=== PATIENT | female | born 1985 | race Caucasian/White ===

== ENCOUNTER 2017-08-18 15:32 | Emergency (ER) | payer MEDICAID ==
[2017-08-18] MEDS ORDERED: CEFTRIAXONE SODIUM 1 GM in 0.9 % SODIUM CHLORIDE 100ML 100 ML IVPB ONE (15:50)
--- NOTE | 2017-08-18 16:16 | Emergency Department Record ---
History of Present Illness - General Chief Complaint: Animal Bite Stated Complaint: CAT BITE Time Seen by Provider: 08/18/17 15:43 Source: Patient Mode of Arrival: Ambulatory Limitations: No limitations - History of Present Illness Initial Comments: The patient is here due to a cat bite to the R foot 16 hours ago. It was a provoked attack between 2 fighting cats. It was the patient's cat who bit her and the rabies status is not UTD. The patient's last tetanus was 4 years ago. The foot has become very painful and red over the last 6 hours. MD Complaint: Animal bite Onset/Timin -: Hour(s) Animal: Cat Description: Household pet Mechanism: Bite Pain Description: Sharp Severity scale (1-10): 6 Context: Animals fighting Associated Symptoms: Bleeding, Erythema Treatments Prior to Arrival: Other - Related Data Patient Tetanus UTD (within 5 yrs): Yes Previous Rx's Medication Instructions Recorded Amoxicillin/Potassium Clav 1 tab PO BID #20 tablet 08/18/17 [Augmentin 875Mg/125Mg] Hydrocodone/Acetaminophen [[place] 1 - 2 each PO .EVERY 4-6 HRS PRN 08/18/17 5-325 Tablet] #15 tablet Allergies Allergy/AdvReac Type Severity Reaction Status Date / Time No Known Drug Allergies Allergy Verified 08/18/17 15:42 Travel Screening - Travel/Exposure Within Last 30 Days Have you traveled within the last 30 days?: No Review of Systems Constitutional: Denies: Chills, Fever Past Medical History - SOCIAL HISTORY Smoking Status: Current every day smoker Alcohol Use: None Drug Use: None - RESPIRATORY Hx Respiratory Disorders: No - CARDIOVASCULAR Hx Cardio Disorders: No - NEURO Hx Neuro Disorders: No - GI Hx GI Disorders: No - Hx Genitourinary Disorders: No - ENDOCRINE Hx Endocrine Disorders: No - MUSCULOSKELETAL Hx Musculoskeletal Disorders: No - PSYCH Hx Psych Problems: No - HEMATOLOGY/ONCOLOGY Hx Hematology/Oncology Disorders: No Family Medical History Any Significant Family History?: Yes Hx HTN: Grandparents Physical Exam - General General Appearance: Alert, Cooperative, No acute distress - Head Head exam: Atraumatic, Normocephalic - Eye Eye exam: Normal appearance, PERRL - Extremities Extremities exam: Normal capillary refill, Tenderness (There is significant tenderness to palpation over the PW sites with very mild swelling and warmth. ) , Other (There is no crepitance or bullae at the cellulitis site. There also is no lymphangitis or any red streaking traveling up the ankle or leg. The infection is localized to the dorsal foot.). negative: Normal inspection ( There are 2 PW's to the R foot dorsally and laterally. The foot is NVI and quite tender at the PW sites. There is significant erythema surrounding the bite wounds. ), Pedal edema Image of Feet: 1 - Area of erythema with 2 PW sites. 2 - PW # 1. 3 - PW # 2. Course Vital Signs 08/18/17 15:37 Temperature 98.0 F Pulse Rate 101 H Respiratory 20 Rate Blood Pressure 143/90 Pulse Ox 97 - Reevaluation(s) Reevaluation #1: Procedure note: Both PW's were anesth. with L[place] 1% and opened up with a # 11 blade. A small amount of purulence was expressed. The wounds were then cleansed with betadine and sterile saline. 08/18/17 16:15 Reevaluation #2: I did explain to the patient she is to keep the foot dry and elevated and to return to the ER at 8am for repeat Abx's. I did explain to her that she may need to be admitted if the foot infection is worse tomorrow. 08/18/17 17:06 Medical Decision Making - Data Complexity MDM Data: X-Ray Ordered and/or Reviewed - Radiology Data Radiology results: Report reviewed (R foot: Neg for any acute injury.) Disposition Disposition: Discharge Clinical Impression: Cellulitis of foot without toes, left Disposition: Home, Self-Care Condition: (2) Stable Instructions: Animal Bite (ED) Additional Instructions: Please keep the L foot elevated and limit your walking. Take the Augmentin as directed and use Kulm for pain. Return to the ER at 8am for recheck and repeat Abx's. Return sooner for any worsening pain, swelling, or fever. Prescriptions: Amoxicillin/Potassium Clav [Augmentin 875Mg/125Mg] 1 tab PO BID #20 tablet Hydrocodone/Acetaminophen [[place] 5-325 Tablet] 1 - 2 each PO .EVERY 4-6 HRS PRN #15 tablet PRN Reason: Pain Forms: Patient Portal Access Time of Disposition: 17:08 Quality - Quality Measures Quality Measures: N/A - Blood Pressure Screening View Details: Yes Does Patient Have Any of the Following: No Blood Pressure Classification: Hypertensive Reading Systolic Measurement: 143 Diastolic Measurement: 90 Screening for High Blood Pressure: < First Hypertensive BP, F/U Documented > [ G8950] First Hypertensive Follow-up Interventions: Referral to alternative/primary care provider.
[2017-08-18] MEDS ORDERED: KETOROLAC 30 MG/ML VIAL IVP ONE (16:45)
[2017-08-18] MEDS ORDERED: HYDROCODONE/APAP 5/325MG TABLET PO ONE (16:53)
--- NOTE | 2017-08-20 18:11 | RADIOLOGY REPORT ---
EXAM: FOOT, RIGHT 3 VIEWS HISTORY: FOOT PAIN. TECHNIQUE: Three views of the right foot. COMPARISON: None. ENCOUNTER: Initial. FINDINGS: Negative for fracture or dislocation. Mild diffuse soft tissue swelling. No soft tissue gas. Joint spaces are preserved. IMPRESSION: MILD DIFFUSE SOFT TISSUE SWELLING. NO ACUTE OSSEOUS ABNORMALITY. JOB NUMBER: [id number] MTDD
== END 2017-08-18 17:36 | disposition home or self-care (01) ==
LOC: ER 15:32
DX: S91.352A Open bite, left foot, initial encounter (principal); L03.116 Cellulitis of left lower limb; W55.01XA Bitten by cat, initial encounter; Y92.009 Unspecified place in unspecified non-institutional (private) residence as the place of occurrence of the external cause; F17.210 Nicotine dependence, cigarettes, uncomplicated
CPT/HCPCS: 10060 ×2; 99284 ×2; 96374; 96375; 73630; J1885

== ENCOUNTER 2017-08-19 08:07 | Inpatient (IN) | payer MEDICAID ==
[2017-08-19] MEDS ORDERED: AMPICILLIN SODIUM/SULBACTAM NA 3 G in 0.9 % SODIUM CHLORIDE 100ML 100 ML IVPB ONE (08:13)
--- NOTE | 2017-08-19 08:19 | Emergency Department Record ---
History of Present Illness - General Chief Complaint: Wound, check Stated Complaint: RECHECK Time Seen by Provider: 08/19/17 08:08 Source: Patient Mode of arrival: Ambulatory Limitations: No limitations - History of Present Illness Initial Comments: 32 yo female presents for a recheck of a cat bite that occurred about 30 hours ago. She was seen 24 hours ago in the ED. She was given Rocephin IVPB and sent home on oral medications. She states she has some increase in redness and swelling today. No fevers. She has been off her foot using crutches and has tried to keep the foot elevated. PCP is Josesito Dos Santos in [place]. Complaint: Needs IV antibiotics, Wound re-check -: Days(s) (1.25) Initial Visit For: Animal bite Returns Today for: Cellulitis follow-up, Needs IV antibiotics Symptoms Since Prior Visit: Worsening redness, Worsening swelling Associated Symptoms: None - Related Data Previous Rx's Medication Instructions Recorded Amoxicillin/Potassium Clav 1 tab PO BID #20 tablet 08/18/17 [Augmentin 875Mg/125Mg] Hydrocodone/Acetaminophen [[place] 1 - 2 each PO .EVERY 4-6 HRS PRN 08/18/17 5-325 Tablet] #15 tablet Allergies Allergy/AdvReac Type Severity Reaction Status Date / Time No Known Drug Allergies Allergy Verified 08/19/17 08:25 Review of Systems Constitutional: Denies: Chills, Fever, Malaise, Weakness Eyes: Denies: Eye discharge, Eye pain ENT: Denies: Congestion, Throat pain Respiratory: Denies: Cough Cardiovascular: Denies: Chest pain, Syncope Endocrine: Denies: Fatigue Gastrointestinal: Denies: Abdominal pain, Diarrhea, Nausea, Vomiting Genitourinary: Denies: Dysuria, Urgency Musculoskeletal: Reports: Arthralgia Skin: Reports: Change in color. Denies: Bruising, Change in hair/nails Neurological: Denies: Headache, Numbness, Weakness Psychiatric: Denies: Anxiety Hematological/Lymphatic: Denies: Blood Clots, Easy bleeding, Easy bruising, Swollen glands Past Medical History - SOCIAL HISTORY Smoking Status: Current every day smoker Drug Use: None - RESPIRATORY Hx Respiratory Disorders: No - CARDIOVASCULAR Hx Cardio Disorders: No - NEURO Hx Neuro Disorders: No - GI Hx GI Disorders: No - Hx Genitourinary Disorders: No - ENDOCRINE Hx Endocrine Disorders: No - MUSCULOSKELETAL Hx Musculoskeletal Disorders: No - PSYCH Hx Psych Problems: No - HEMATOLOGY/ONCOLOGY Hx Hematology/Oncology Disorders: No Family Medical History Hx HTN: Grandparents Physical Exam - General General Appearance: Alert, Oriented x3, Cooperative, No acute distress Limitations: No limitations - Head Head exam: Atraumatic, Normal inspection - Eye Eye exam: Normal appearance, Conjunctival injection - ENT ENT exam: Normal exam Ear exam: Normal external inspection Nasal Exam: Normal inspection Mouth exam: Normal external inspection - Neck Neck exam: Normal inspection - Respiratory Respiratory exam: Normal lung sounds bilaterally. negative: Respiratory distress - Cardiovascular Cardiovascular Exam: Regular rate, Normal rhythm, Normal heart sounds Peripheral Pulses: 2+: Dorsalis Pedis (R) - Rectal Rectal exam: Deferred - exam: Deferred - Extremities Extremities exam: Normal capillary refill, Tenderness. negative: Normal inspection Image of Feet: 1 - eruthema and mild swelling, tenderness at the site of puncture, no pus or drainage, mild erythema up the ankle - Neurological Neurological exam: Alert, Oriented X3 - Psychiatric Psychiatric exam: Normal affect, Normal mood. negative: Agitated, Anxious - Skin Skin exam: Erythema Course - Reevaluation(s) Reevaluation #1: Per the patient and the RN the area of erythema has increased and there is new streaking I recommend admission for IV antibiotics XR was reviewed Labs ordered the and the area of cellulitis marked 08/19/17 08:29 08/19/17 08:35 WBC is 12.8 08/19/17 08:49 The BMP is normal CRP is 4.8 08/19/17 08:52 I EMI Estes of the admission service. 08/19/17 08:54 The plan is IV Unasyn every 6 hours. Medical Decision Making - Lab Data Result diagrams: 08/19/17 08:22 08/19/17 08:22 Disposition Disposition: Admit Clinical Impression: Abscess or cellulitis of foot Disposition: Still a Patient at [facility] Decision to Admit: Admit from ER Decision to Admit Date: 08/19/17 Decision to Admit Time: 08:19 Condition: (1) Good Forms: Patient Portal Access Time of Disposition: 08:19 Quality - Quality Measures Quality Measures: N/A - Blood Pressure Screening Does Patient Have Any of the Following: No Blood Pressure Classification: Hypertensive Reading Systolic Measurement: 142 Diastolic Measurement: 61 Screening for High Blood Pressure: < Pre-Hypertensive BP, F/U Documented > [ G8950] Pre-Hypertensive Follow-up Interventions: Referral to alternative/primary care provider.
[2017-08-19] MEDS ORDERED: KETOROLAC 30 MG/ML VIAL IVP ONE (08:20)
[2017-08-19 08:29] LABS: BASO % 0.2 % (0-6); EOS % 2.2 % (0-6); GRAN % 65.9 % (47-80); HEMATOCRIT 40.1 % (35.0-47.0); HEMOGLOBIN 12.7 gm/dl (11.6-16.0); LYMPH % 21.2 % (16-45); MEAN CELL VOLUME 91.1 fl (81-97); MEAN CORPUSCULAR HEMOGLOBIN 28.9 pg (27-33); MEAN CORPUSCULAR HGB CONC 31.7 g/dl (32-36); MEAN PLATELET VOLUME 10.3 fl (7.4-10.4); MONO % 10.5 % (0-9); PLATELET COUNT 308 K/uL (130-400); WHITE BLOOD COUNT W/O DIFF 12.8 K/uL (4.2-12.2)
[2017-08-19 08:40] LABS: BLOOD UREA NITROGEN 13 mg/dL (6-20); CREATININE 0.6 mg/dL (0.5-0.9); EST GLOMERULAR FILTRATION RATE > 60 mL/min
[2017-08-19 08:43] LABS: GLUCOSE,RANDOM 98 mg/dL (74-109)
[2017-08-19 08:46] LABS: C-REACTIVE PROTEIN 4.81 mg/dL (<0.5)
[2017-08-19] MEDS ORDERED: HYDROCODONE/APAP 7.5/325MG TABLET PO PRN (10:12)
[2017-08-19] MEDS: NICOTINE14 MG/24 HOUR PATCH TD SCH ×2 (11:32→22:28)
--- NOTE | 2017-08-19 11:41 | History & Physical ---
History of Present Illness - Date of Service Date of Service for History & Physical: 08/20/17 - History of Present Illness Admitting Diagnosis: Cellulitis from cat bite History of Present Illness: 32yo female with CC of right foot pain. She has no significant medical history. Patient initially presented to our ED on following a bite from her cat on the top of her right foot Tuesday night. The foot had become red, swollen and very tender. Patient had two puncture wounds lanced, and cleaned. WAs given one dose of IV rocephin and sent home with augmentin. She returned to ED on tuesday with worsening redness that was then beginning to streak up her right leg. While in the ED on Tuesday, patients foot and leg were noticeably swollen. No active drainage from puncture sites. She ahd mildly elevated WBC count at 12.8 and CRP was elevated at 4..8 she was afebrile. XR from was reviewed and was negative for acute injury. Cultures obtained were still pending. She was started on Unasyn and admitted for continued IV abx therapy. 08/20/17- Patient states her foot is feeling much better today. The redness has receded significantly from yesterday and the swelling has gone down. Patient states she is better able to move her right toes compared to yesterday and the pain has decreased. She is still having pain with ambulation and has been using crutches comfortably. She denies any fever, chills, drainage from the foot. Travel Screening - Travel/Exposure Within Last 30 Days Have you traveled within the last 30 days?: No - Travel/Exposure Within Last Year Have you traveled outside the [place] in the last year?: No - Additonal Travel Details Have you been exposed to anyone with a communicable illness?: No Review of Systems Constitutional: Denies: Chills, Fever, Malaise, Weakness Eyes: Denies: Eye discharge, Eye pain ENT: Denies: Congestion, Throat pain Respiratory: Denies: Cough Cardiovascular: Denies: Chest pain, Syncope Endocrine: Denies: Fatigue Gastrointestinal: Denies: Abdominal pain, Diarrhea, Nausea, Vomiting Genitourinary: Denies: Dysuria, Urgency Musculoskeletal: Reports: Other (foot pain) Skin: Reports: Change in color. Denies: Bruising, Change in hair/nails Neurological: Denies: Headache, Numbness, Weakness Psychiatric: Denies: Anxiety Hematological/Lymphatic: Denies: Blood Clots, Easy bleeding, Easy bruising, Swollen glands Past Medical History - SOCIAL HISTORY Smoking Status: Current every day smoker Alcohol Use: None Drug Use: Occasional Drug Use Detail:: Marijuana - RESPIRATORY Hx Respiratory Disorders: No - CARDIOVASCULAR Hx Cardio Disorders: No - NEURO Hx Neuro Disorders: No - GI Hx GI Disorders: No - Hx Genitourinary Disorders: No - ENDOCRINE Hx Endocrine Disorders: No - MUSCULOSKELETAL Hx Musculoskeletal Disorders: No - PSYCH Hx Psych Problems: No - HEMATOLOGY/ONCOLOGY Hx Hematology/Oncology Disorders: No Family Medical History Any Significant Family History?: Yes Hx HTN: Grandparents H&P Meds/Allergies - Allergies Allergies: Allergies Allergy/AdvReac Type Severity Reaction Status Date / Time No Known Drug Allergies Allergy Verified 08/19/17 08:25 - Home Medications Previous Rx's Medication Instructions Recorded Amoxicillin/Potassium Clav 1 tab PO BID #20 tablet 08/18/17 [Augmentin 875Mg/125Mg] Hydrocodone/Acetaminophen [[place] 1 - 2 each PO .EVERY 4-6 HRS PRN 08/18/17 5mg/325mg] #15 tablet - Active Medications Active Medications: Current Medications Hydrocodone Bitart/Acetaminophen ([place] 7.5mg/325mg) 1 each PO Q6H PRN PRN Reason: Pain - General Enoxaparin Sodium (Lovenox) 40 mg SC DAILY [facility] Ampicillin Sodium/Sulbactam (Sodium 1.5 g/ Sodium Chloride) 100 mls @ 200 mls/ hr IVPB Q6H [facility] Stop: 08/24/17 12:01 Ketorolac Tromethamine (Toradol) 15 mg IVP Q8H PRN PRN Reason: Pain - General Nicotine (Nicotine 14mg) 1 patch TD DAILY [facility] Last Admin: 08/19/17 11:32 Dose: 1 patch Physical Exam - Vital Signs Vital Signs: Vital Signs - Last 24 Hrs Temp Pulse Resp BP Pulse Ox 08/19/17 10:12 97.6 F 84 16 113/73 97 - General General Appearance: Alert, Oriented x3, Cooperative, No acute distress Limitations: No limitations - Head Head exam: Atraumatic, Normal inspection - Eye Eye exam: Normal appearance, Conjunctival injection - ENT ENT exam: Normal exam Ear exam: Normal external inspection Nasal Exam: Normal inspection Mouth exam: Normal external inspection - Neck Neck exam: Normal inspection - Respiratory Respiratory exam: Normal lung sounds bilaterally. negative: Respiratory distress - Cardiovascular Cardiovascular Exam: Regular rate, Normal rhythm, Normal heart sounds Peripheral Pulses: 2+: Dorsalis Pedis (R) - Rectal Rectal exam: Deferred - exam: Deferred - Extremities Extremities exam: Normal capillary refill, Tenderness (over dorsum of foot). negative: Normal inspection - Neurological Neurological exam: Alert, Oriented X3 - Psychiatric Psychiatric exam: Normal affect, Normal mood. negative: Agitated, Anxious - Skin Skin exam: Erythema (dorsum of foot, ) Results - Labs Result Diagrams: 08/20/17 06:05 08/20/17 06:05 VTE H&P Assessment - Risk for VTE Risk for VTE: No Risk Level: Low Risk Assessment Date: 08/20/17 Risk Assessment Time: 16:10 VTE Orders Placed or Will Be Placed: No VTE Reason for No Prophylaxis: Not Indicated Plan - Inpatient Certification Inpatient Certification: Admit to inpatient care: Based on my medical assessment, after consideration of patient's risk factors (age, co-morbidities and patient presenting symptoms and acuity), I expect that this patient will remain in the hospital greater than or equal to two midnights and that the services needed warrant inpatient care because: Patient Risk Factors: [] Estimated length of stay: [] The patient may reasonably be expected to be discharged or transferred to a hospital within 96 hours after admission to [facility]. Services needed: [] Post hospital care (if known): [] I certify that my determination is in accordance with my understanding of Medicare requirements for reasonable and necessary inpatient services. - Detailed Diagnosis and Plan (1) Cellulitis of right foot Status: Acute Base Code: L03.115 - CELLULITIS OF RIGHT LOWER LIMB Comment: - Improving. WBC count down to 7.6 and CRP down to 3.77. Erythema is significantly reduced as is her swelling following 6 doses of unasyn. She has 2 + pulses with <2 sec cap refill. No signs of compartment syndrome. She feels her pain is very well controlled with toradol. No drainage from two wounds. -will plan to discharge home today with continued use of crutches and increase activity as tolerating. New line drawn marking erythema border and dated. -Transition to augmentin 875/125mg po bid for 10 more days. She will take her next dose this evening. has full bottle from previous script -transition to ibuprofen 800mg po up to three times daily as needed for pain.. Discussed alternating with tylenol, and she does have a script for [place] from previous ED visit which she may use for severe break through pain. -she will call her pcp, Dr. Dos Santos tuesday morning to schedule follow up. -spent 10 minutes discussing reasons to return to ED including increasing redness outside new borders drawn today, increasing swelling, drainage from puncture wounds, decreased sensation or movement in toes. She voiced her understanding. Encouraged her to avoid getting the foot wet for at least another 48H and to try and keep right foot elevated when resting. (2) Full code status Status: Acute Base Code: Z78.9 - OTHER SPECIFIED HEALTH STATUS Comment: 08/20- patient is full code (3) DVT prophylaxis Status: Acute Base Code: [id number] - Comment: 08/20/17- Patient is low risk for VTE. She is ambulating well with crutches -will encourage ambulation as tolerating
[2017-08-19] MEDS: ENOXAPARIN 40 MG/0.4 ML SYR SC SCH (11:53)
[2017-08-19] MEDS: AMPICILLIN SODIUM/SULBACTAM NA 1.5 G in 0.9 % SODIUM CHLORIDE 100ML 100 ML IVPB SCH ×3 (11:53→23:54)
[2017-08-19] MEDS: KETOROLAC 30 MG/ML VIAL IVP PRN ×2 (13:46→23:55)
[2017-08-20] MEDS: AMPICILLIN SODIUM/SULBACTAM NA 1.5 G in 0.9 % SODIUM CHLORIDE 100ML 100 ML IVPB SCH ×2 (06:29→13:14)
[2017-08-20 06:30] LABS: BASO % 0.3 % (0-6); EOS % 2.8 % (0-6); GRAN % 54.6 % (47-80); HEMATOCRIT 38.2 % (35.0-47.0); LYMPH % 29.2 % (16-45); MEAN CELL VOLUME 92.3 fl (81-97); MEAN CORPUSCULAR HGB CONC 31.4 g/dl (32-36); MEAN PLATELET VOLUME 10.5 fl (7.4-10.4); MONO % 13.1 % (0-9); PLATELET COUNT 278 K/uL (130-400); RED BLOOD COUNT 4.14 M/uL (3.80-5.40); RED CELL DISTRIBUTION WIDTH 12.8 % (11.5-14.5); WHITE BLOOD COUNT W/O DIFF 7.6 K/uL (4.2-12.2)
[2017-08-20 06:44] LABS: BLOOD UREA NITROGEN 13 mg/dL (6-20); C-REACTIVE PROTEIN 3.77 mg/dL (<0.5); CREATININE 0.6 mg/dL (0.5-0.9); EST GLOMERULAR FILTRATION RATE > 60 mL/min; GLUCOSE,RANDOM 97 mg/dL (74-109)
[2017-08-20] MEDS: KETOROLAC 30 MG/ML VIAL IVP PRN (08:57)
[2017-08-20] MEDS ORDERED: HYDROCODONE/APAP 7.5/325MG TABLET PO PRN (09:17)
[2017-08-20] MEDS ORDERED: IBUPROFEN 400 MG TABLET PO SCH (13:00)
[2017-08-20] MEDS: NICOTINE14 MG/24 HOUR PATCH TD SCH ×2 (13:14→14:38)
[2017-08-20] MEDS: ENOXAPARIN 40 MG/0.4 ML SYR SC SCH (13:15)
--- NOTE | 2017-08-20 13:47 | Discharge Summary ---
Providers Discharge Summary Date: 08/20/17 Date of admission: 08/19/17 10:04 Expected Date of Discharge: 08/20/17 Attending physician: VALERIE RUBIO Primary care physician: MATTI SALCEDO D.O. Physical Exam - Vital Signs Vital Signs: Vital Signs - Last 24 Hrs Temp Pulse Resp BP Pulse Ox 08/20/17 11:00 97.9 F 84 18 117/62 97 08/20/17 02:00 98.1 F 80 18 122/39 96 08/19/17 21:00 16 08/19/17 18:12 97.9 F 83 18 111/64 99 - General General Appearance: Alert, Oriented x3, Cooperative, No acute distress Limitations: No limitations - Head Head exam: Atraumatic, Normal inspection - Eye Eye exam: Normal appearance, Conjunctival injection - ENT ENT exam: Normal exam Ear exam: Normal external inspection Nasal Exam: Normal inspection Mouth exam: Normal external inspection - Neck Neck exam: Normal inspection - Respiratory Respiratory exam: Normal lung sounds bilaterally. negative: Respiratory distress - Cardiovascular Cardiovascular Exam: Regular rate, Normal rhythm, Normal heart sounds Peripheral Pulses: 2+: Dorsalis Pedis (R) - Rectal Rectal exam: Deferred - exam: Deferred - Extremities Extremities exam: Normal capillary refill, Tenderness. negative: Normal inspection - Neurological Neurological exam: Alert, Oriented X3 - Psychiatric Psychiatric exam: Normal affect, Normal mood. negative: Agitated, Anxious - Skin Skin exam: Erythema Hospitalization - Hospitalization Admission Diagnosis: Cellulitis from cat bite - Problem List/Discharge Diagnosis (1) Cellulitis of right foot Status: Acute Base Code: L03.115 - CELLULITIS OF RIGHT LOWER LIMB Comment: - Improving. WBC count down to 7.6 and CRP down to 3.77. Erythema is significantly reduced as is her swelling following 6 doses of unasyn. She has 2 + pulses with <2 sec cap refill. No signs of compartment syndrome. She feels her pain is very well controlled with toradol. No drainage from two wounds. -will plan to discharge home today with continued use of crutches and increase activity as tolerating. New line drawn marking erythema border and dated. -Transition to augmentin 875/125mg po bid for 10 more days. She will take her next dose this evening. has full bottle from previous script -transition to ibuprofen 800mg po up to three times daily as needed for pain.. Discussed alternating with tylenol, and she does have a script for [place] from previous ED visit which she may use for severe break through pain. -she will call her pcp, Dr. Salcedo tuesday morning to schedule follow up. -spent 10 minutes discussing reasons to return to ED including increasing redness outside new borders drawn today, increasing swelling, drainage from puncture wounds, decreased sensation or movement in toes. She voiced her understanding. Encouraged her to avoid getting the foot wet for at least another 48H and to try and keep right foot elevated when resting. (2) DVT prophylaxis Status: Acute Base Code: [id number] - Comment: 08/20/17- Patient is low risk for VTE. She is ambulating well with crutches -will encourage ambulation as tolerating (3) Full code status Status: Acute Base Code: Z78.9 - OTHER SPECIFIED HEALTH STATUS Comment: 08/20- patient is full code - Hospitalization Course Disposition: Home, Self-Care Hospital Course: 32yo female with CC of right foot pain. She has no significant medical history. Patient initially presented to our ED on following a bite from her cat on the top of her right foot Tuesday night. The foot had become red, swollen and very tender. Patient had two puncture wounds lanced, and cleaned. WAs given one dose of IV rocephin and sent home with augmentin. She returned to ED on tuesday with worsening redness that was then beginning to streak up her right leg. While in the ED on Tuesday, patients foot and leg were noticeably swollen. No active drainage from puncture sites. She ahd mildly elevated WBC count at 12.8 and CRP was elevated at 4..8 she was afebrile. XR from was reviewed and was negative for acute injury. Cultures obtained were still pending. She was started on Unasyn and admitted for continued IV abx therapy. 08/20/17- Patient states her foot is feeling much better today. The redness has receded significantly from yesterday and the swelling has gone down. Patient states she is better able to move her right toes compared to yesterday and the pain has decreased. She is still having pain with ambulation and has been using crutches comfortably. She denies any fever, chills, drainage from the foot. Abnormal Labs: Abnormal Lab Results 08/20/17 08/20/17 Range/Units 06:05 06:05 MCHC 31.4 L (32-36) g/dl MPV 10.5 H (7.4-10.4) fl Monocytes % 13.1 H (0-9) % Calcium 8.4 L (8.6-10.0) mg/dL C-Reactive Protein 3.77 H (<0.5) mg/dL Condition at Discharge: (2) Stable Discharge Medications - Discharge Medications Home Medications: Ambulatory Orders Amoxicillin/Potassium Clav [Augmentin 875Mg/125Mg] 1 tab PO BID #20 tablet 08/18 [Last Taken 08/19/17] Hydrocodone/Acetaminophen [[place] 5mg/325mg] 1 - 2 each PO .EVERY 4-6 HRS PRN # 15 tablet 08/18/17 [Last Taken 08/19/17] Discharge Plan - Discharge Instructions Activity at Discharge: Increase Activity as Tolerated Instructions: Cellulitis (DC) Additional Instructions: Follow up with your primary care next week. Please call Dr. Salcedo's office Tuesday morning for appointment. Continue Augmentin 875/125mg by mouth twice daily. Your next dose will be due tonight May use ibuprofen 800mg by mouth up to three times daily for pain and may supplement with tylenol. Keep foot elevated as much as possible and dry. Please call with any questions or concerns Return to ED for new or worsening symptoms Quality Measures - Quality Measures Quality Measures: Documentation of Current Medications in Medical Record, Screening for High Blood Pressure and F/U Documented - Current Medications Quality Measure: Measure #130: Documentation of Current Medications Documentation of Current Medications: <Current Medications Documented/Reviewed> [G8427] - Blood Pressure Screening Quality Measure: Screening for High Blood Pressure and Follow-Up Documented Does Patient Have Any of the Following: No Blood Pressure Classification: Hypertensive Reading Systolic Measurement: 142 Diastolic Measurement: 61 Screening for High Blood Pressure: < First Hypertensive BP, F/U Documented > [ G8950] First Hypertensive Follow-up Interventions: Follow-up with rescreen GT 1 day and LT 4 weeks., Referral to alternative/primary care provider. - Elder Abuse Suspicion Index EASI Reference Information: Gray VARGAS, Winston C, Shara D, Zacarias Briggs.Development and validation of a tool to assist physicians identification of elder abuse: The Elder Abuse Suspicion Index (EASI ). Journal of Elder Abuse and Neglect, 2008; 20 (3): 276-300.
== END 2017-08-20 14:42 | disposition home or self-care (01) | DRG 950 ==
LOC: ER 08:07 → MEDSURG 10:04
PROVIDERS: ADMIT Internal Medicine; ATTEND Internal Medicine
DX: S91.351D Open bite, right foot, subsequent encounter (principal); W55.01XD Bitten by cat, subsequent encounter; F17.210 Nicotine dependence, cigarettes, uncomplicated
CPT/HCPCS: 80048; 84703; 85025; 86140; 96365; 96366; 96375; 99223; 99285; J0295; J1885

== ENCOUNTER 2017-12-11 10:26 | Emergency (ER) | payer MEDICAID ==
[2017-12-11] MEDS ORDERED: DEXAMETHASONE SOD PHOSPHATE 10MG/ML VIAL PO ONE (10:53)
--- NOTE | 2017-12-11 10:53 | Emergency Department Record ---
History of Present Illness - General Chief complaint: ENT Stated complaint: EAR PAIN, SORE THROAT Time Seen by Provider: 12/11/17 10:47 Source: Patient Mode of Arrival: Ambulatory Limitations: No limitations - History of Present Illness Initial comments: 32 yo female presents with 4 days of cough, congestion sputum, ear pain. No fever. She is a smoker. The congestion and drainage are discolored. No NVD. No rash. MD complaint: Ear pain, Sore throat -: Days(s) (4) Location: R ear, L ear, Throat Severity scale (1-10): 5 Quality: Aching Consistency: Constant Improves with: None Worsens with: Swallowing Context- Ear: Other (allergies) - Related Data Previous Rx's Medication Instructions Recorded Azithromycin [Zithromax] 250 mg PO DAILY #6 tab 12/11/17 Allergies Allergy/AdvReac Type Severity Reaction Status Date / Time No Known Drug Allergies Allergy Verified 12/11/17 10:38 Travel Screening - Travel/Exposure Within Last 30 Days Have you traveled within the last 30 days?: No Review of Systems Constitutional: Denies: Chills, Fever, Malaise, Weakness Eyes: Denies: Eye discharge ENT: Reports: Congestion, Ear pain, Throat pain Respiratory: Reports: Cough Cardiovascular: Denies: Chest pain, Palpitations, Syncope Endocrine: Denies: Fatigue Gastrointestinal: Denies: Abdominal pain, Diarrhea, Nausea, Vomiting Genitourinary: Denies: Dysuria Musculoskeletal: Denies: Arthralgia, Back pain, Myalgia Skin: Denies: Bruising, Change in color, Rash Neurological: Denies: Headache, Numbness, Weakness Psychiatric: Denies: Anxiety Hematological/Lymphatic: Denies: Blood Clots, Easy bleeding, Easy bruising, Swollen glands Past Medical History - SOCIAL HISTORY Smoking Status: Current every day smoker Alcohol Use: None Drug Use: None - RESPIRATORY Hx Respiratory Disorders: No - CARDIOVASCULAR Hx Cardio Disorders: No - NEURO Hx Neuro Disorders: No - GI Hx GI Disorders: No - Hx Genitourinary Disorders: No - ENDOCRINE Hx Endocrine Disorders: No - MUSCULOSKELETAL Hx Musculoskeletal Disorders: No - PSYCH Hx Psych Problems: No - HEMATOLOGY/ONCOLOGY Hx Hematology/Oncology Disorders: No Family Medical History Any Significant Family History?: Yes Hx HTN: Grandparents Physical Exam - General General Appearance: Alert, Oriented x3, Cooperative, No acute distress - Head Head exam: Atraumatic, Normal inspection - Eye Eye exam: Normal appearance. negative: Conjunctival injection, Scleral icterus - ENT ENT exam: Normal exam. negative: Mucous membranes dry, Mucous membranes moist, TM's normal bilaterally (Right TM with erythema, left is normal) Ear exam: Normal external inspection Nasal Exam: Normal inspection Mouth exam: Normal external inspection Teeth exam: Normal inspection Throat exam: Normal inspection. negative: Tonsillar erythema, Tonsillomegaly, Tonsillar exudate, R peritonsillar mass, L peritonsillar mass - Neck Neck exam: Lymphadenopathy (Right greater than left) - Respiratory Respiratory exam: Normal lung sounds bilaterally. negative: Respiratory distress, Rhonchi, Stridor, Wheezes - Cardiovascular Cardiovascular Exam: Regular rate, Normal rhythm, Normal heart sounds - GI/Abdominal GI/Abdominal exam: Soft. negative: Tenderness - Rectal Rectal exam: Deferred - exam: Deferred - Extremities Extremities exam: Normal inspection. negative: Full ROM, Pedal edema, Tenderness - Back Back exam: Denies: CVA tenderness (R), CVA tenderness (L) - Neurological Neurological exam: Alert, Oriented X3 - Psychiatric Psychiatric exam: Normal affect, Normal mood - Skin Skin exam: Dry, Intact, Normal color, Warm Course Vital Signs 12/11/17 10:31 Temperature 98.0 F Pulse Rate [ 76 Pulse Ox Probe] Respiratory 16 Rate Blood Pressure 119/70 [Left Arm] Pulse Ox 99 Disposition Disposition: Discharge Clinical Impression: Otitis media Disposition: Home, Self-Care Condition: (1) Good Instructions: Otitis Media (ED) Additional Instructions: Return to ED if your symptoms worsen or if you have any new concerns. Take the prescriptions provided today as directed. Call your family doctor to schedule the next available appointment for a recheck. Review the final Emergency Record and test results with your doctor on follow up Prescriptions: Azithromycin [Zithromax] 250 mg PO DAILY #6 tab Forms: Patient Portal Access Time of Disposition: 10:54 Quality - Quality Measures Quality Measures: N/A - Blood Pressure Screening Does Patient Have Any of the Following: No Blood Pressure Classification: Normal BP Reading Systolic Measurement: 114 Diastolic Measurement: 71 Screening for High Blood Pressure: < Normal BP, F/U Not Required > [G8783]
== END 2017-12-11 11:30 | disposition home or self-care (01) ==
LOC: ER 10:26
DX: H66.91 Otitis media, unspecified, right ear (principal); R05 Cough; F17.210 Nicotine dependence, cigarettes, uncomplicated
CPT/HCPCS: 99282

== ENCOUNTER 2018-04-05 21:24 | Emergency (ER) | payer MEDICAID ==
[2018-04-05] MEDS ORDERED: IBUPROFEN 600 MG TABLET PO ONE (21:46)
--- NOTE | 2018-04-05 21:51 | Emergency Department Record ---
History of Present Illness - General Stated complaint: RT SHOULDER PAIN Time Seen by Provider: 04/05/18 21:46 Source: Patient Mode of Arrival: Ambulatory Limitations: No limitations - History of Present Illness Initial comments: 33 yo female presents with right shoulder pain for 2 days. She does a lot of repetitive movements at work. She has had pain in the anterior shoulder with movement and lifting for the last 2 days. No warmth or redness. No history of injury or prior shoulder surgery. No swelling. No redness. No rash. MD Complaint: Extremity pain, Joint pain -: Days(s) (2) Location: Right History of Same: Yes -: Yes Arthralgia Radiation: Proximal Quality: Aching Consistency: Constant Improves with: Immobilization, Rest Worsens with: Palpation, Weight bearing Associated Symptoms: Denies other symptoms - Related Data Home Medications Medication Instructions Recorded Confirmed Last Taken No Home Med [NO HOME MEDS] 04/05/18 04/05/18 Unknown Allergies Allergy/AdvReac Type Severity Reaction Status Date / Time No Known Drug Allergies Allergy Verified 12/11/17 10:38 Review of Systems Constitutional: Denies: Chills, Fever, Malaise, Weakness Eyes: Denies: Eye discharge ENT: Denies: Congestion, Throat pain Respiratory: Denies: Cough Cardiovascular: Denies: Chest pain, Syncope Endocrine: Denies: Fatigue Gastrointestinal: Denies: Abdominal pain, Diarrhea, Nausea, Vomiting Genitourinary: Denies: Dysuria Musculoskeletal: Reports: Arthralgia, Myalgia. Denies: Joint swelling Skin: Denies: Bruising, Change in color, Rash Neurological: Denies: Headache, Numbness, Vertigo, Weakness Psychiatric: Denies: Anxiety Hematological/Lymphatic: Denies: Easy bleeding, Easy bruising, Swollen glands Past Medical History - SOCIAL HISTORY Drug Use: Occasional - RESPIRATORY Hx Respiratory Disorders: No - CARDIOVASCULAR Hx Cardio Disorders: No - NEURO Hx Neuro Disorders: No - GI Hx GI Disorders: No - Hx Genitourinary Disorders: No - ENDOCRINE Hx Endocrine Disorders: No - MUSCULOSKELETAL Hx Musculoskeletal Disorders: No - PSYCH Hx Psych Problems: No - HEMATOLOGY/ONCOLOGY Hx Hematology/Oncology Disorders: No Family Medical History Hx HTN: Grandparents Physical Exam - General General Appearance: Alert, Oriented x3, Cooperative, No acute distress Limitations: No limitations - Head Head exam: Atraumatic, Normal inspection - Eye Eye exam: Normal appearance, PERRL. negative: Conjunctival injection, Scleral icterus - ENT ENT exam: Normal exam, Mucous membranes moist Ear exam: Normal external inspection Nasal Exam: Normal inspection Mouth exam: Normal external inspection - Neck Neck exam: Normal inspection - Respiratory Respiratory exam: Normal lung sounds bilaterally. negative: Respiratory distress - Cardiovascular Cardiovascular Exam: Regular rate Peripheral Pulses: 2+: Radial (R) - GI/Abdominal GI/Abdominal exam: Soft - Rectal Rectal exam: Deferred - exam: Deferred - Extremities Extremities exam: Normal inspection, Normal capillary refill, Tenderness. negative: Full ROM, Joint swelling, Pedal edema Image of Full Body: 1 - normal inspection, tender anterior lateral, no rash or redness, no pain with internal or external rotation, she has pain with abduction passive and forced adduction. - Back Back exam: Reports: Normal inspection - Neurological Neurological exam: Alert, Oriented X3 - Psychiatric Psychiatric exam: Normal affect, Normal mood. negative: Agitated, Anxious - Skin Skin exam: Dry, Intact, Normal color, Warm Course Vital Signs 04/05/18 21:44 Temperature 98.3 F Pulse Rate [ 71 Pulse Ox Probe] Respiratory 20 Rate Blood Pressure 123/73 [Left Arm] Pulse Ox 99 - Reevaluation(s) Reevaluation #1: 04/06/18 01:08 XR was negative Conservative supportive treatment with RICE Disposition Disposition: Discharge Clinical Impression: Shoulder tendonitis Disposition: Home, Self-Care Condition: (1) Good Instructions: Rotator Cuff Tendinitis (ED) Additional Instructions: Ice the shoulder every 6 hours Use the sling only for comfort. Take your arm out at least every 6 hours and gently go through a range of motion to prevent stiffness. Forms: Patient Portal Access Time of Disposition: 22:00 Quality - Quality Measures Quality Measures: N/A - Blood Pressure Screening Does Patient Have Any of the Following: No Blood Pressure Classification: Pre-Hypertensive BP Reading Systolic Measurement: 120 Diastolic Measurement: 82 Screening for High Blood Pressure: < Pre-Hypertensive BP, F/U Documented > [ G8950] Pre-Hypertensive Follow-up Interventions: Referral to alternative/primary care provider.
--- NOTE | 2018-04-07 13:51 | RADIOLOGY REPORT ---
DATE: 04/05/2018. EXAM: RIGHT SHOULDER RADIOGRAPHS. HISTORY: CHRONIC RIGHT SHOULDER PAIN. TECHNIQUE: Three views of the right shoulder. COMPARISON: None. FINDINGS: No acute fracture seen. No dislocation. No significant degenerative changes. IMPRESSION: UNREMARKABLE RIGHT SHOULDER RADIOGRAPHS. JOB NUMBER: [id number] MTDD
== END 2018-04-05 23:10 | disposition home or self-care (01) ==
LOC: ER 21:24
DX: M75.91 Shoulder lesion, unspecified, right shoulder (principal)
CPT/HCPCS: 99283

== ENCOUNTER 2019-04-15 17:39 | Emergency (ER) | payer SELFPAY ==
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
--- NOTE | 2019-04-15 18:45 | RADIOLOGY REPORT ---
EXAMINATION: Two View Chest Radiographs EXAM DATE: 04/15/2019 6:38 PM TECHNIQUE: Frontal and lateral views INDICATION: back pain COMPARISON: None ENCOUNTER: Not applicable FINDINGS: The heart, mediastinum, and pulmonary vasculature are normal. No lung consolidation or pleural effu sions are present. IMPRESSION: Normal chest. Dictated by: Alexis Ricardo MD on 04/15/2019 6:43 PM. .
== END 2019-04-15 18:53 | disposition home or self-care (01) ==
LOC: ER 17:39
DX: S29.012A Strain of muscle and tendon of back wall of thorax, initial encounter (principal); S60.221A Contusion of right hand, initial encounter; S80.12XA Contusion of left lower leg, initial encounter; V40.5XXA Car driver injured in collision with pedestrian or animal in traffic accident, initial encounter; F17.210 Nicotine dependence, cigarettes, uncomplicated
CPT/HCPCS: 71046; 99283